=== PATIENT | female | born 1965 | race Caucasian/White ===

== ENCOUNTER → 2023-09-27 15:47 | Outpatient (REF) | payer OTHER, SELFPAY | LOC: WDC 15:47 | PROVIDERS: ATTENDING PHYSICIAN Family Medicine | DX: Z12.31 Encounter for screening mammogram for malignant neoplasm of breast (principal) | CPT/HCPCS: 77063; 77067 ==

== ENCOUNTER → 2024-06-12 14:29 | Outpatient (REF) | payer OTHER, SELFPAY | LOC: RAD 14:29 | PROVIDERS: ATTENDING PHYSICIAN Nurse Practitioner Family | DX: M54.50 Low back pain, unspecified (principal) | CPT/HCPCS: 72110 ==

== ENCOUNTER → 2024-11-14 16:51 | Outpatient (REF) | payer OTHER, SELFPAY | LOC: WDC 16:51 | PROVIDERS: ATTENDING PHYSICIAN Family Medicine | DX: Z12.31 Encounter for screening mammogram for malignant neoplasm of breast (principal) | CPT/HCPCS: 77063; 77067 ==